=== PATIENT | male | born 1965 | race Caucasian/White ===

== ENCOUNTER 2021-05-20 16:55 | Emergency (ER) | payer OTHER ==
[2021-05-20 17:08] VITALS: TEMP 98.4
--- NOTE | 2021-05-20 17:27 | ED ---
General Adult HPI - General Source: patient, RN notes reviewed, old records reviewed Mode of arrival: EMS Limitations: no limitations <Brian Emery - Last Filed: 05/20/21 20:05> <Velasquez Byrne - Last Filed: 05/21/21 22:39> - General Chief complaint: Alcohol Stated complaint: ETOH Time Seen by Provider: 05/20/21 17:11 - History of Present Illness Initial comments: 55-year-old presenting for alcohol intoxication. Patient was brought in by police. There is no mention of suicidal or homicidal ideation. He was uncooperative with paramedics during transport. He does admit to alcohol consumption. Patient on cooperative with history, no physical complaints. (Brian Emery) Review of Systems ROS Other: All systems not noted in ROS Statement are negative. <Brian Emery - Last Filed: 05/20/21 20:05> ROS Other: All systems not noted in ROS Statement are negative. <Velasquez Byrne - Last Filed: 05/21/21 22:39> ROS Statement: Those systems with pertinent positive or pertinent negative responses have been documented in the HPI. Past Medical History Past Medical History: No Reported History History of Any Multi-Drug Resistant Organisms: None Reported Past Surgical History: No Surgical Hx Reported Past Psychological History: No Psychological Hx Reported Smoking Status: Current every day smoker Past Alcohol Use History: Abuse Past Drug Use History: None Reported <Brian Emery - Last Filed: 05/20/21 20:05> General Exam Limitations: no limitations General appearance: alert, appears intoxicated Head exam: Present: atraumatic, normocephalic Eye exam: Present: normal appearance, PERRL ENT exam: Present: normal exam Neck exam: Present: normal inspection. Absent: tenderness, meningismus Respiratory exam: Present: normal lung sounds bilaterally. Absent: respiratory distress, wheezes Cardiovascular Exam: Present: regular rate, normal rhythm GI/Abdominal exam: Present: soft. Absent: distended, tenderness, guarding Extremities exam: Present: normal inspection, normal capillary refill. Absent: pedal edema Neurological exam: Present: alert, oriented X3, CN II-XII intact. Absent: motor sensory deficit Psychiatric exam: Present: agitated Skin exam: Present: warm, dry, intact. Absent: cyanosis, diaphoretic <Brian Emery - Last Filed: 05/20/21 20:05> General appearance: alert, in no apparent distress Head exam: Present: atraumatic, normocephalic, normal inspection Eye exam: Present: normal appearance, PERRL, EOMI. Absent: scleral icterus, conjunctival injection, periorbital swelling ENT exam: Present: normal exam, mucous membranes moist Neck exam: Present: normal inspection. Absent: tenderness, meningismus, lymphadenopathy Respiratory exam: Present: normal lung sounds bilaterally. Absent: respiratory distress, wheezes, rales, rhonchi, stridor Cardiovascular Exam: Present: regular rate, normal rhythm, normal heart sounds. Absent: systolic murmur, diastolic murmur, rubs, gallop, clicks GI/Abdominal exam: Present: soft, normal bowel sounds. Absent: distended, tenderness, guarding, rebound, rigid Extremities exam: Present: normal inspection, full ROM, normal capillary refill. Absent: tenderness, pedal edema, joint swelling, calf tenderness Back exam: Present: normal inspection Neurological exam: Present: alert, oriented X3, CN II-XII intact Psychiatric exam: Present: normal affect, normal mood Skin exam: Present: warm, dry, intact, normal color. Absent: rash <Velasquez Byrne - Last Filed: 05/21/21 22:39> Course <Brian Emery - Last Filed: 05/20/21 20:05> <Velasquez Byrne - Last Filed: 05/21/21 22:39> Vital Signs 05/20/21 05/20/21 05/20/21 17:00 19:07 21:17 Temperature 98.4 F Pulse Rate 108 H 93 86 Respiratory 18 18 15 Rate Blood Pressure 124/70 124/68 O2 Sat by Pulse 98 97 98 Oximetry - Reevaluation(s) Reevaluation #1: 05/20/21 20:05 Patient up to the bathroom, vital signs are stable. When asked how he is doing he tells me to "shut up". (Brian Emery) Reevaluation #2: 05/21/21 Pataient awake alert, rested, acting appropriately asking for discharge (Velasquez Byrne) Medical Decision Making <Velasquez Byrne - Last Filed: 05/21/21 22:39> - Medical Decision Making 55 male to the ED for ETOH by PD not petitiioned not homicidal or suicidal and ok for DC (Velasquez Byrne) Disposition <Brian Emery - Last Filed: 05/20/21 20:05> Is patient prescribed a controlled substance at d/c from ED?: No <Velasquez Byrne - Last Filed: 05/21/21 22:39> Clinical Impression: Alcoholic intoxication Disposition: HOME SELF-CARE Condition: Good Instructions (If sedation given, give patient instructions): Alcohol Intoxication (ED) Referrals: None,Stated [REFERRING] - 1-2 days
[2021-05-20 21:19] VITALS: BP 124/68; PULSE 86; RESP 15
== END 2021-05-21 07:27 | disposition home or self-care (01) ==
LOC: EC 16:55
DX: F10.129 Alcohol abuse with intoxication, unspecified (principal); F17.200 Nicotine dependence, unspecified, uncomplicated
CPT/HCPCS: 99283